=== PATIENT | female | born 1930 | race Caucasian/White ===

== ENCOUNTER 2017-01-12 15:11 | Emergency (ER) | payer MEDICARE, OTHER ==
[2016-05-17 10:23] VITALS: BMI 17.5
[~2017-01-12 15:11] MED LIST: CATAPRES0.1 MG PO; CHILDREN'S ASPI81 MG PO; CLARITIN 10 MG10 MG PO; CO Q-1030 MG PO; COLACE100 MG PO; ESTER-C 500 MG1 TAB PO; FISH OIL 1,0001 CA1 PO; FOLATE0.4 MG PO; FOSAMAX 70 MG T70 MG PO; LIPITOR10 MG PO; MULTI-DAY VITAM1 TAB PO; OS-CAL500 MG PO; PEPCID20 MG PO; TRAVATAN Z2.5 ML EACH EYE; VITAMIN B-12500 MCG PO; VITAMIN D31000 UNIT PO; ZEBETA5 MG PO; magnesium PO
[2017-01-12 16:02] LABS: BASOPHILS 0.6 % (0.0-2.0); EOSINOPHILS 6.8 % (0-7); IMMATURE GRANULOCYTES 0.3 % (0-5); LYMPHOCYTES 20.7 % (15-50); MCH 29.1 pg (26.0-34.0); MCHC 31.6 g/dL (31.0-37.0); MEAN PLATELET VOLUME 9.8 fL (7.4-10.4); MONOCYTES 8.5 % (2-11); NEUTROPHILS 63.1 % (40-80); PLATELET COUNT 186 10x3/uL (130-400); RBC 4.13 10x6/uL (4.00-5.40); RDW 13.8 % (11.5-14.5); WBC 6.4 10x3/uL (4.8-10.8)
[2017-01-12 16:13] LABS: APTT 29.9 SECONDS (22.8-39.4); INR 0.97 (0.85-1.17); PROTIME 12.8 SECONDS (11.6-15.0)
[2017-01-12 16:22] LABS: ALBUMIN 3.6 g/dL (3.4-5.0); ALKALINE PHOSPHATASE 108 U/L (46-116); ALT (SGPT) 19 U/L (10-68); BILIRUBIN - TOTAL 0.74 mg/dL (0.2-1.3); CALC OSMOLALITY 280 mosm/kg (275-300); CALCIUM 9.3 mg/dL (8.5-10.1); CHLORIDE - SERUM 101 mmol/L (98-107); CREATININE - SERUM 0.9 mg/dL (0.6-1.3); GLUCOSE 102 mg/dL (74-106); POTASSIUM - SERUM 4.1 mmol/L (3.5-5.1); PROTEIN - SERUM 7.5 g/dL (6.4-8.2); SODIUM 140 mmol/L (136-145); UREA NITROGEN 17 mg/dL (7-18); eGFR NON AFRICAN AMERICAN 63 mL/min (90-120)
[2017-01-12 16:27] LABS: TROPONIN-I < 0.017 ng/mL (0.000-0.060)
[2017-01-12 18:46] LABS: APPEARANCE CLEAR (CLEAR); BILIRUBIN NEGATIVE (NEGATIVE); COLOR YELLOW (YELLOW); GLUCOSE NEGATIVE (NEGATIVE); KETONE NEGATIVE (NEGATIVE); LEUKOCYTE ESTERASE NEGATIVE (NEGATIVE); NITRITE NEGATIVE (NEGATIVE); PROTEIN NEGATIVE (NEGATIVE); SPECIFIC GRAVITY 1.005 (1.005-1.020); UROBILINOGEN NORMAL (NORMAL)
== END 2017-01-12 21:16 | disposition home or self-care (01) ==
LOC: D.ER 15:11
PROVIDERS: Emergency Medicine
DX: R55 Syncope and collapse (principal); R00.1 Bradycardia, unspecified